=== PATIENT | female | born 1955 | race Two or more races ===

== ENCOUNTER 2023-10-31 09:20 | Emergency (ER) | payer OTHER ==
[~2023-10-31] VITALS: Ht 170.2 cm; Wt 59.0 kg
[2023-10-31] MEDS ORDERED: LOSARTAN POTAS100 MG PO (09:35)
[2023-10-31] MEDS ORDERED: CLONIDINE HCL0.1 M1 PO (09:36)
[2023-10-31] MEDS ORDERED: SIMVASTATIN10 MG PO (09:36)
[2023-10-31] MEDS ORDERED: 0.9 % SODIUM CHLORIDE 1,000 ML IV STA (10:05)
[2023-10-31 10:49] LABS: HEMATOCRIT 38.3 % (36.0-45.00); HEMOGLOBIN 13.1 g/dL (12.0-15.00); MEAN CELL VOLUME 91.5 fL (80.00-100.00); MEAN CORPUSCULAR HEMOGLOBIN 31.4 pg (27.00-32.0); MEAN CORPUSCULAR HGB CONC 34.3 g/dl (32.0-36.0); PLATELET COUNT 355 K/uL (150-450); RED BLOOD COUNT 4.18 M/uL (4.00-6.00); RED CELL DISTRIBUTION WIDTH 13.7 % (11.5-14.5)
[2023-10-31 10:53] LABS: CALCIUM 8.2 mg/dL (8.5-10.1); CREATININE SERUM 0.72 mg/dL (0.55-1.02); GFR 80.08; POTASSIUM 3.28 mEq/L (3.5-5.1)
[2023-10-31 11:00] LABS: URINE APPEARANCE Clear; URINE BILIRRUBIN Negative (NEGATIVE); URINE BLOOD Negative; URINE COLOR Yellow; URINE GLUCOSE Negative (NEGATIVE); URINE LEUKOCYTE Negative; URINE NITRATE Negative; URINE PROTEIN Negative (NEGATIVE); URINE UROBILINOGEN 0.2 E.U./dl
[2023-10-31 15:14] LABS: URINE EPITHELIAL CELLS 0.9 uL (0.0-38.8); URINE RBC 1.2 uL (0.0-20.8); URINE WBC 0.4 uL (0.0-23.2)
== END 2023-10-31 13:16 | disposition home or self-care (01) ==
LOC: ER 09:20
PROVIDERS: General Practice
DX: R55 Syncope and collapse (principal); S01.521A Laceration with foreign body of lip, initial encounter; W18.39XA Other fall on same level, initial encounter; Y93.89 Activity, other specified; Y92.89 Other specified places as the place of occurrence of the external cause; I10 Essential (primary) hypertension